=== PATIENT | male | born 1930 | race Caucasian/White ===

== ENCOUNTER 2016-09-19 22:49 | Emergency (ER) | payer MEDICARE, BC ==
[2016-09-20 00:21] LABS: Calcium 9.3 mg/dL (8.6-10.3); EGFR African American 71.6 (>60); EGFR Non-African American 55.7 (>60)
[2016-09-20 00:28] LABS: Hematocrit 42 % (42-52); Hemoglobin 13.9 g/dl (14.0-18.0); Mean Corpuscular HGB Conc 33 g/dl (31-36); Mean Corpuscular Hemoglobin 28 pg (27-31); Mean Corpuscular Volume 85 fL (80-94); Mean Platelet Volume 9 um3 (7.4-10.4); Red Blood Count 4.95 10^6/ul (4.0-5.4); Red Cell Distribution Width 15 % (10.5-15); White Blood Count 9.5 10^3/ul (3.5-10.8)
--- NOTE | 2016-09-20 00:57 | ED ---
Meredith Staley Michael, scribed for Manny Wehat MD on 09/19/16 at 2326 . Influenza-Like Illness - HPI Summary HPI Summary: 86 y/o comes to the ED presenting with influenza-like symptoms for one day. The pt's was beside and states that the fever's highest temperature was 102.5, and currently at the ED, the pt's temperature is 99.8. 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 He also c/o chills, BAIRD, weakness, and myalgia. The pt denies n/v/d. He recently visited Urgent Care on September 02 and was dx with bronchitis. He was prescribed Doxycycline for 10 days. He is currently taking Augmentin. - History of Current Complaint Chief Complaint: EDFluSymptoms Time Seen by Provider: 09/19/16 23:20 Hx Obtained From: Patient, Family/Reel Worker, Medical Records Onset/Duration: Sudden Onset, Lasting Days, Still Present Severity: Moderate Associated Signs & Symptoms: Fever - chills and weakness, T Max - 102.5, Myalgia , Headache - Allergy/Home Medications Allergies/Adverse Reactions: Allergies Allergy/AdvReac Type Severity Reaction Status Date / Time Ciprofloxacin [From Cipro] Allergy Rash Verified 09/19/16 22:59 PMH/Surg Hx/FS Hx/Imm Hx Cardiovascular History: Reports: Hx Hypertension Musculoskeletal History: Reports: Hx Arthritis, Other Musculoskeletal History - arthritis Sensory History: Reports: Hx Contacts or Glasses, Hx Hearing Aid Opthamlomology History: Reports: Hx Contacts or Glasses - Cancer History Cancer Type, Location and Year: prostate cancer - Surgical History Surgery Procedure, Year, and Place: prostate surgery, bilateral knees Hx Anesthesia Reactions: No Infectious Disease History: No Infectious Disease History: Denies: Traveled Outside the [place] in Last 30 Days - Family History Known Family History: Negative: Blood Disorder - Social History Occupation: Retired Lives: With Family Alcohol Use: Rare Substance Use Type: Reports: None Type: Cigarettes Review of Systems Positive: Fever, Chills Negative: Vomiting, Diarrhea, Nausea Positive: Myalgia Positive: Headache, Weakness All Other Systems Reviewed And Are Negative: Yes Physical Exam Triage Information Reviewed: Yes Vital Signs On Initial Exam: Initial Vitals Temp Pulse Resp BP Pulse Ox 99.8 F 128 20 116/66 94 09/19/16 22:55 09/19/16 22:55 09/19/16 22:55 09/19/16 22:55 09/19/16 22:55 Vital Signs Reviewed: Yes Appearance: Positive: Well-Appearing, No Pain Distress Skin: Positive: Warm Head/Face: Positive: Normal Head/Face Inspection Eyes: Positive: ANNA ENT: Positive: Pharynx normal Neck: Positive: Supple, Nontender Respiratory/Lung Sounds: Positive: Clear to Auscultation, Breath Sounds Present Cardiovascular: Positive: RRR Abdomen Description: Positive: Nontender, Soft Bowel Sounds: Positive: Present Musculoskeletal: Positive: Strength/ROM Intact Neurological: Positive: Sensory/Motor Intact, Alert, Oriented to Person Place, Time Psychiatric: Positive: Affect/Mood Appropriate Diagnostics - Vital Signs Vital Signs Temp Pulse Resp BP Pulse Ox 09/19/16 22:55 99.8 F 128 20 116/66 94 - Laboratory Lab Results: Lab Results 09/19/16 09/19/16 09/19/16 Range/Units 23:10 23:43 23:43 WBC 9.5 (3.5-10.8) 10^3/ul RBC 4.95 (4.0-5.4) 10^6/ul Hgb 13.9 L (14.0-18.0) g/dl Hct 42 (42-52) % MCV 85 (80-94) fL MCH 28 (27-31) pg MCHC 33 (31-36) g/dl RDW 15 (10.5-15) % Plt Count 221 (150-450) 10^3/ul MPV 9 (7.4-10.4) um3 Neut % (Auto) 77.8 (38-83) % Lymph % (Auto) 10.7 L (25-47) % Dodge % (Auto) 10.5 H (1-9) % Eos % (Auto) 0.6 (0-6) % Baso % (Auto) 0.4 (0-2) % Absolute Neuts (auto) 7.4 (1.5-7.7) 10^3/ul Absolute Lymphs (auto) 1.0 (1.0-4.8) 10^3/ul Absolute Monos (auto) 1.0 H (0-0.8) 10^3/ul Absolute Eos (auto) 0.1 (0-0.6) 10^3/ul Absolute Basos (auto) 0 (0-0.2) 10^3/ul Absolute Nucleated RBC 0 10^3/ul Nucleated RBC % 0 Sodium 130 L (133-145) mmol/L Potassium 4.0 (3.5-5.0) mmol/L Chloride 98 L (101-111) mmol/L Carbon Dioxide 24 (22-32) mmol/L Anion Gap 8 (2-11) mmol/L BUN 27 H (6-24) mg/dL Creatinine 1.23 H (0.67-1.17) mg/dL Est GFR ( Amer) 71.6 (>60) Est GFR (Non-Af Amer) 55.7 (>60) BUN/Creatinine Ratio 22.0 H (8-20) Glucose 123 H (70-100) mg/dL Calcium 9.3 (8.6-10.3) mg/dL Influenza A (Rapid) Positive H (Negative) Influenza B (Rapid) Negative (Negative) Result Diagrams: 09/19/16 23:43 09/19/16 23:43 Lab Statement: Any lab studies that have been ordered have been reviewed, and results considered in the medical decision making process. - Radiology CXR Xray Interpretation: No Acute Changes Radiology Interpretation Completed By: ED Physician - EKG EK EKG Rhythm: Sinus Tachycardia - 110 bpm Ectopy: PVCs Re-Evaluation - Re-Evaluation First Eval Change: Improved - results d/w pt Flu Symptom Course/Dx - Diagnoses Provider Diagnoses: Influenza Discharge - Discharge Plan Condition: Stable Disposition: HOME Patient Education Materials: Influenza (ED) Referrals: Hernán Harrell MD [Primary Care Provider] - Additional Instructions: You should follow up with Dr. Harrell within the next 2-4 days. The documentation as recorded by the Meredith templeton Michael accurately reflects the service I personally performed and the decisions made by me, Manny Wheat MD.
[2016-09-20 01:17] VITALS: BP 131/79
--- NOTE | 2016-09-20 07:45 | RAD ---
INDICATION: Fever. COMPARISON: Comparison is made with a prior chest x-ray study from June 26, 2016. TECHNIQUE: Dual-energy PA and lateral views of the chest were obtained. FINDINGS: The heart is within normal limits in size. Mediastinal and hilar contours appear within normal limits. The lungs are hyperinflated and clear. There has been interval resolution of the previously noted right upper lobe infiltrate. No pleural effusion is seen. IMPRESSION: NO EVIDENCE FOR ACTIVE CARDIOPULMONARY DISEASE.
== END 2016-09-20 01:17 | disposition home or self-care (01) ==
LOC: ED 22:49
DX: R50.9 Fever, unspecified (principal); R53.1 Weakness; R51 Headache; M79.1 Myalgia
CPT/HCPCS: 36415; 71020; 80048; 85025; 87502; 93005; 99283

== ENCOUNTER 2019-04-06 14:11 | Emergency (ER) | payer MEDICARE, BC ==
--- NOTE | 2019-04-06 17:00 | ED ---
Abdominal Pain/Male - HPI Summary HPI Summary: This patient is a 88 year old M presenting to [facility] accompanied by his with a chief complaint of constant ABD pain since earlier today. Pt states he went to bed and woke up in the morning to pee when he felt a burning sensation in the lower ABD. This lasted for 15 minutes and the pain radiated to the rest of his ABD and flank areas. The patient rates the pain 8/10 in severity. Symptoms aggravated by nothing. Symptoms alleviated by nothing. Patient denies any fever, chills, erythema of eyes, sore throat, CP, SOB, cough, N/V, dysuria, hematuria, myalgia, edema, rash, diaphoresis, or dizziness. Pt has an irregular heartbeat and had a cholecystectomy done. - History of Current Complaint Chief Complaint: EDAbdPain Stated Complaint: POSS APPENDICITIS PER Time Seen by Provider: 04/06/19 16:54 Hx Obtained From: Patient, Family/Switchboard Installer - Onset/Duration: Sudden Onset, Lasting Hours - since this morning, Still Present Severity Initially: Moderate Severity Currently: Moderate Pain Intensity: 8 Pain Scale Used: 0-10 Numeric Radiates: Yes Radiates to: Flank Aggravating Factor(s): Nothing Alleviating Factor(s): Nothing Associated Signs And Symptoms: Positive: Other - positive - ABD pain. negative - any chills, erythema of eyes, sore throat, SOB, dysuria, hematuria, myalgia, edema, rash, or dizziness.. Negative: Diaphoresis, Fever, Cough, Chest Pain, Nausea, Vomiting - Allergies/Home Medications Allergies/Adverse Reactions: Allergies Allergy/AdvReac Type Severity Reaction Status Date / Time ciprofloxacin Allergy Rash Verified 04/08/19 09:35 Home Medications: Home Medications Hydrochlorothiazide TAB* [Hydrodiuril TAB*] 12.5 mg PO QAM 04/06/19 [History Confirmed 04/06/19] Mometasone NASAL (NF) [Nasonex (NF)] 2 spray BOTH NARES QAM 04/06/19 [History Confirmed 04/06/19] Omeprazole CAP (NF) [Prilosec CAP* 20 MG] 20 mg PO QAM 04/06/19 [History Confirmed 04/06/19] Quinapril HCl 40 mg PO QAM 04/06/19 [History Confirmed 04/06/19] PMH/Surg Hx/FS Hx/Imm Hx Previously Healthy: No Cardiovascular History: Reports: Hx Hypertension, Other Cardiovascular Problems/ Disorders - ARRYTHYMIA Musculoskeletal History: Reports: Hx Arthritis, Other Musculoskeletal History - arthritis Sensory History: Reports: Hx Contacts or Glasses, Hx Hearing Aid Opthamlomology History: Reports: Hx Contacts or Glasses - Cancer History Cancer Type, Location and Year: prostate cancer - Surgical History Surgical History: Yes Surgery Procedure, Year, and Place: prostate surgery, bilateral knees Hx Anesthesia Reactions: No - Immunization History Date of Tetanus Vaccine: unk Date of Influenza Vaccine: unk Infectious Disease History: No Infectious Disease History: Denies: Traveled Outside the [place] in Last 30 Days - Family History Known Family History: Negative: Blood Disorder - Social History Alcohol Use: Rare Substance Use Type: Reports: None Hx Tobacco Use: Yes Smoking Status (MU): Never Smoked Tobacco Type: Cigarettes Review of Systems Negative: Fever, Chills, Skin Diaphoresis Negative: Erythema Negative: Sore Throat Negative: Chest Pain Negative: Shortness Of Breath, Cough Positive: Abdominal Pain. Negative: Vomiting, Nausea Negative: dysuria, hematuria Negative: Myalgia, Edema Negative: Rash Neurological: Other - negative - dizziness All Other Systems Reviewed And Are Negative: Yes Physical Exam - Summary Physical Exam Summary: Constitutional: Well-developed, Well-nourished, Alert. (-) Distressed Skin: Warm, Dry HENT: Normocephalic; Atraumatic Eyes: Conjunctiva normal Neck: Musculoskeletal ROM normal neck. (-) JVD, (-) Stridor, (-) Tracheal deviation Cardio: Rhythm regular, rate normal, Heart sounds normal; Intact distal pulses; The pedal pulses are 2+ and symmetric. Radial pulses are 2+ and symmetric. (-) Murmur Pulmonary/Chest wall: Effort normal. (-) Respiratory distress, (-) Wheezes, (-) Rales Abd: Soft, RLQ tenderness with guarding, (-) Distension, (-) Rebound Musculoskeletal: (-) Edema Lymph: (-) Cervical adenopathy Neuro: Alert, Oriented x3 Psych: Mood and affect Normal Triage Information Reviewed: Yes Vital Signs On Initial Exam: Initial Vitals Temp Pulse Resp BP Pulse Ox 98.6 F 84 18 127/79 97 04/06/19 14:19 04/06/19 14:19 04/06/19 14:19 04/06/19 14:19 04/06/19 14:19 Vital Signs Reviewed: Yes Procedures - Sedation Patient Received Moderate/Deep Sedation with Procedure: No Diagnostics - Vital Signs Vital Signs Temp Pulse Resp BP Pulse Ox 04/06/19 14:19 98.6 F 84 18 127/79 97 - Laboratory Result Diagrams: 04/06/19 16:52 04/06/19 16:52 Lab Statement: Any lab studies that have been ordered have been reviewed, and results considered in the medical decision making process. Abdominal Pain Male Course/Dx - Course Course Of Treatment: This patient is a 88 year old M presenting to [facility] accompanied by his with a chief complaint of constant ABD pain since earlier today. Pt states he went to bed and woke up in the morning to pee when he felt a burning sensation in the lower ABD. This lasted for 15 minutes and the pain radiated to the rest of his ABD and flank areas. The patient rates the pain 8/10 in severity. Symptoms aggravated by nothing. Symptoms alleviated by nothing. Patient denies any fever, chills, erythema of eyes, sore throat, CP, SOB, cough, N/V, dysuria, hematuria, myalgia, edema, rash, diaphoresis, or dizziness. Pt has an irregular heartbeat and had a cholecystectomy done. Physical exam shows RLQ tenderness with guarding. Lab results show WBC 14.7, absolute neuts 12.0, BUN 32, creatinine 1.98, glucose 118, CRP 23.55, lipase 10 , urine ketones trace A. During ED course, pt was given Mefoxin, morphine, fluids, and Zofran. Pt will be signed out from Dr. Sandra to Dr. Cole at [address] read. - Diagnoses Provider Diagnoses: Right kidney stone Discharge ED - Sign-Out/Discharge Documenting (check all that apply): Sign-Out Patient Signing out patient TO: Toni Cole - Discharge Plan Condition: Stable Disposition: HOME Prescriptions: Acetaminophen with Codeine [Acetaminophen-Cod #3 Tablet] 1 each PO Q8HR PRN #20 tablet MDD 3 tablets PRN Reason: pain severe Patient Education Materials: Kidney Stones (ED) Referrals: Hernán Harrell MD [Primary Care Provider] - Brian Brumfield MD [Medical Doctor] - Additional Instructions: Please follow up with your primary care provider as well as Dr. Brumfield within the next 1-3 days. Come back to the emergency department with any new or worsening symptoms, including fever, chills, vomiting, or worsening pain. - Billing Disposition and Condition Condition: STABLE Disposition: Home - Attestation Statements Document Initiated by Clive: Yes Documenting Scribe: Antwan Bradford Provider For Whom Scribe is Documenting (Include Credential): Dr. Zeferino Sandra MD Scribe Attestation: Antwan Staley scribed for Dr. Zeferino Sandra MD on 04/14/19 at 2237. Scribe Documentation Reviewed: Yes Provider Attestation: The documentation as recorded by the Antwan templeton accurately reflects the service I personally performed and the decisions made by me, Dr. Zeferino Sandra MD Status of Scribe Document: Viewed
[2019-04-06 17:02] LABS: ABS Basophils 0.1 10^3/ul (0-0.2); ABS Lymphocytes 1.9 10^3/ul (1.0-4.8); ABS Monocytes 0.7 10^3/ul (0-0.8); Eosinophil % 0.1 %; Hematocrit 45 % (42-52); Hemoglobin 15.1 g/dL (14.0-18.0); Lymphocyte % 12.9 %; Mean Corpuscular HGB Conc 33 g/dL (31-36); Mean Corpuscular Hemoglobin 29 pg (27-31); Mean Corpuscular Volume 88 fL (80-94); Mean Platelet Volume 8.6 fL (7.4-10.4); Nucleated Red Blood Cells % 0.1; Platelet Count 253 10^3/uL (150-450); Red Blood Count 5.12 10^6 /uL (4.18-5.48); Red Cell Distribution Width 15 % (10-15); White Blood Count 14.7 10^3/uL (3.5-10.8)
[2019-04-06] MEDS ORDERED: Morphine 4 MG/ML VIAL (1 ml) 4 MG/ML VIAL IV ONE (17:13)
[2019-04-06] MEDS ORDERED: Ondansetron INJ* 2 MG/ML VIAL IV ONE (17:13)
[2019-04-06] MEDS ORDERED: NS 0.9% 1000 ML** 1,000 ML IV ONE (17:14)
[2019-04-06 17:25] LABS: Albumin 4.3 g/dL (3.2-5.2); Albumin/Globulin Ratio 1.7 (1-3); BUN/Creatinine Ratio 16.2 (8-20); C Reactive Protein 23.55 mg/L (<8.01); Calcium 9.6 mg/dL (8.6-10.3); EGFR African American 38.7 (>60); Globulin 2.6 g/dL (2-4); Potassium 4.4 mmol/L (3.5-5.0); Total Protein 6.9 g/dL (6.4-8.9)
[2019-04-06] MEDS ORDERED: ceFOXitin 2 GM IVPREMIX* 2 GM/50 ML BAG IVPB ONE (17:25)
[2019-04-06] MEDS ORDERED: Iodixanol* (CONTRAST) 320 MG/ML 100 ML SDV IV ONE (18:43)
[2019-04-06 18:51] LABS: Urine Appearance Clear; Urine Bilirubin Negative (Negative); Urine Blood Negative (Negative); Urine Color Yellow; Urine Glucose Negative (Negative); Urine Ketones Trace (Negative); Urine Nitrite Negative (Negative); Urine Protein Negative (Negative); Urine Specific Gravity 1.018 (1.010-1.030); Urine Urobilinogen Negative (Negative)
--- NOTE | 2019-04-06 19:31 | ED ---
Progress - Progress Note Progress Note: Pt is a signout from Dr. Sandra at 1900 on 04/06/[address] a/p results. - Results/Orders Results/Orders: CT a/p shows: Distal right ureteral stone with dilatation of the ureter and renal pelvis and perinephric fat stranding. ED physician has reviewed this report. Course/Dx - Course Course Of Treatment: Patient is here with abdominal and flank pain. Patient signed out from Dr. Sandra to myself. Patient's CT scan showed a kidney stone at the distal ureter right at the bladder lip. Patient has no symptoms consistent with an infected stone as he has no fever, vomiting, flank pain. Patient started on Flomax and discharged with pain control. Patient was given urology follow-up - Diagnoses Provider Diagnoses: Right kidney stone Discharge ED - Sign-Out/Discharge Documenting (check all that apply): Patient Departure, Receiving Sign-Out Receiving patient FROM: Zeferino Sandra - Discharge Plan Condition: Stable Disposition: HOME Prescriptions: Acetaminophen with Codeine [Acetaminophen-Cod #3 Tablet] 1 each PO Q8HR PRN #20 tablet MDD 3 tablets PRN Reason: pain severe Tamsulosin CAP* [Flomax CAP*] 0.4 mg PO DAILY 30 Days #30 cap Patient Education Materials: Kidney Stones (ED) Referrals: Hernán Harrell MD [Primary Care Provider] - Brian Brumfield MD [Medical Doctor] - Additional Instructions: Please follow up with your primary care provider as well as Dr. Brumfield within the next 1-3 days. Come back to the emergency department with any new or worsening symptoms, including fever, chills, vomiting, or worsening pain. - Billing Disposition and Condition Condition: STABLE Disposition: Home - Attestation Statements Document Initiated by Scribe: Yes Documenting Scribe: Sirisha Moran Provider For Whom Clive is Documenting (Include Credential): Toni Cole MD. Scribe Attestation: Sirisha Staley scribed for Toni Cole MD. on 04/07/19 at 0338. Scribe Documentation Reviewed: Yes Provider Attestation: The documentation as recorded by the Sirisha templeton accurately reflects the service I personally performed and the decisions made by Toni ayoub MD. Status of Scribe Document: Viewed Procedures - Sedation Patient Received Moderate/Deep Sedation with Procedure: No
[2019-04-06] MEDS ORDERED: HYDROcodone/ACETAMIN 5-325 MG* 1 TAB PO ONE (21:16)
[2019-04-06 21:43] VITALS: BP 124/81
== END 2019-04-06 21:42 | disposition home or self-care (01) ==
LOC: ED 14:11
DX: N20.0 Calculus of kidney (principal); I10 Essential (primary) hypertension; Z85.46 Personal history of malignant neoplasm of prostate; Z79.899 Other long term (current) drug therapy; Z88.1 Allergy status to other antibiotic agents
CPT/HCPCS: 36415; 74177; 80053; 81003; 83605; 83690; 85025; 86140; 96361; 96365; 96375; 99283; J0694; J2270; J2405; Q9967

== ENCOUNTER 2019-04-08 09:09 | Day surgery (SDC) | payer MEDICARE, BC ==
--- NOTE | 2019-04-07 19:24 | HP ---
CC: Dr. Harrell * ADMITTING HISTORY AND PHYSICAL: DATE OF ADMISSION: 04/08/19 ADMITTING DIAGNOSIS: 1. Right hydronephrosis. 2. Obstructing calculus, right distal ureter. PLANNED PROCEDURE: Right ureteroscopy, possible laser and stent insertion. HISTORY OF PRESENT ILLNESS: Jessica Weston is an 88-year-old gentleman who has had right flank and right lower quadrant pain for the last several days associated with nausea and anorexia. He underwent evaluation by Dr. Harrell and a subsequent CT scan, which revealed right hydronephrosis secondary to a calculus in the right distal ureter. He continues to have episodic pain and was seen in my office where an ultrasound revealed persistent right hydronephrosis secondary to a 6-mm calculus in the right distal ureter with moderate surrounding edema and significantly reduced right ureteral jet. In addition, there was evidence of perinephric extravasation. PAST MEDICAL HISTORY: Significant for: 1. Hypertension. 2. Prostate cancer, diagnosed in 1993, treated with cryotherapy. 3. History of arrhythmia (PVC, had a cardiac workup, which was essentially negative). PAST SURGICAL HISTORY: Significant for: 1. Cryotherapy for prostate cancer. 2. Bilateral total knee replacement. 3. Cholecystectomy. MEDICATIONS ON ADMISSION: 1. Hydrochlorothiazide 12.5 mg daily. 2. Nasonex 50 mcg 2 sprays in each nostril daily. 3. Quinapril 40 mg daily. 4. Omeprazole 20 mg daily. ALLERGIES: CIPRO (rash). FAMILY HISTORY: His daughter has had kidney stones. SOCIAL HISTORY: He is a former smoker who quit 35 years ago and has a 30-pack- year smoking history prior to that. REVIEW OF SYSTEMS: He denies any chest pain or shortness of breath. There is no history of diabetes mellitus or any other major systemic illness. PHYSICAL EXAMINATION GENERAL: Reveals a pleasant elderly gentleman. VITAL SIGNS: Blood pressure is 94/62, pulse 95 per minute and regular, temperature 98.4, oxygen saturation 96% on room air. LUNGS: Clear bilaterally. CARDIOVASCULAR: Regular rate and rhythm. S1, S2. ABDOMEN: Soft with right flank and right lower quadrant tenderness. IMPRESSION: An 88-year-old gentleman with an obstructing calculus in the right distal ureter. PLAN/RECOMMENDATIONS: Planned procedure is right ureteroscopy, possible laser and stent insertion. [id number]/[facility] #: [id number] MTDD
[~2019-04-08 09:09] MED LIST: Buffered Lidocaine 1% SYRIN* 1 ML/SYRINGE INTRADERM ONE; Dexamethasone IV* 4 MG/ML 1 ML (4 MG) IV SLOW PU ONE; Lactated Ringers 1000 ML Bag* 1,000 ML IV SCH
[2019-04-08] MEDS ORDERED: cefTRIAXone(*) 2 GM ADDV.VIAL IVPB ONE (09:31)
[2019-04-08] MEDS ORDERED: Dexamethasone IV* 4 MG/ML 1 ML (4 MG) ONE (09:31)
[2019-04-08] MEDS ORDERED: Iohexol 180 (CONTRAST) 10 ML SDV IV ONE (10:32)
[2019-04-08] MEDS ORDERED: fentaNYL* 50 MCG/ML 2 ML VIAL (100 MCG VIAL) ONE (10:46)
[2019-04-08] MEDS ORDERED: Midazolam* 1 MG/ML 5 ML VIAL (5 MG) ONE (10:46)
[2019-04-08] MEDS ORDERED: fentaNYL* 50 MCG/ML 2 ML VIAL (100 MCG VIAL) IV PRN (10:47)
[2019-04-08] MEDS ORDERED: Naloxone* 0.4 MG/ML 1 ML VIAL IV PRN (10:47)
[2019-04-08] MEDS ORDERED: oxyCODONE/Acetamin 5/325 MG* TAB PO PRN (10:47)
[2019-04-08] MEDS ORDERED: HYDROcodone/ACETAMIN 5-325 MG* 1 TAB PO PRN (10:47)
[2019-04-08] MEDS ORDERED: DiMENhydriNATE IV* 50 MG/ML VIAL IV PUSH PRN (10:47)
[2019-04-08] MEDS ORDERED: Acetaminophen TAB* 325 MG PO PRN (10:47)
[2019-04-08 13:07] VITALS: BP 158/80
--- NOTE | 2019-04-08 22:21 | OP ---
CC: Dr. Harrell * DATE OF OPERATION: 04/08/19 - [facility] DATE OF : 28 SURGEON: Brian Brumfield MD ANESTHESIOLOGIST: Dr. Stroud. ANESTHESIA: Spinal. PRE-OP DIAGNOSES: 1. Right hydronephrosis. 2. Calculus, right ureter. POST-OP DIAGNOSES: 1. Right hydronephrosis. 2. Calculus, right ureter. OPERATIVE PROCEDURE: Cystoscopy, right retrograde pyelogram, right ureteroscopy , laser lithotripsy of calculus right ureter and removal of calculus fragments and right stent insertion. COMPLICATIONS: None. STENT USED: 6-Angolan stent, right ureter. OPERATIVE FINDINGS: Approximately 5- to 6-mm calculus impacted at right ureterovesical junction with surrounding edema and inflammation and right hydronephrosis. POSTOPERATIVE CONDITION: Stable. INDICATIONS: Jessica Weston is an 88-year-old gentleman who has had flank pain secondary to an obstructing calculus in the right distal ureter. DESCRIPTION OF PROCEDURE: After induction of spinal anesthesia, the patient was placed in dorsal lithotomy position. Sequential compression devices were in place and functioning. Initial cystoscopy revealed a normal-appearing urethra and a mildly enlarged prostate. The bladder was examined. The tip of the calculus could be seen at the level of the right ureterovesical junction with surrounding edema and inflammation. A guidewire was introduced adjacent to the calculus. Retrograde pyelogram revealed right hydronephrosis with tortuosity of the proximal right ureter. This was straightened out over a hydrophilic glidewire. A 6-Angolan semi-rigid ureteroscope was introduced and advanced under direct vision. The calculus was fragmented using a 550 micron Holmium laser fiber and the two fragments were removed. A 6-Angolan stent was introduced and positioned under fluoroscopy with good proximal and distal positioning obtained. The bladder was emptied. The patient tolerated the procedure satisfactorily and was transferred back to the recovery area in stable condition. [id number]/[facility] #: [id number] G[facility] HEALTHJayda
== END 2019-04-08 13:54 | disposition home or self-care (01) ==
LOC: OR 09:09
PROVIDERS: ATTEND Urology
DX: N13.2 Hydronephrosis with renal and ureteral calculous obstruction (principal); I10 Essential (primary) hypertension; Z85.46 Personal history of malignant neoplasm of prostate; I49.3 Ventricular premature depolarization
CPT/HCPCS: 74420; 82365; 88300; C1876; J0696; J1100; J2250; J3010

== ENCOUNTER 2019-04-17 08:18 | Observation (INO) | payer MEDICARE, BC ==
[2019-04-17] MEDS ORDERED: NS 0.9% 1000 ML** 1,000 ML IV.FLUID IV ONE (08:31)
[2019-04-17] MEDS ORDERED: cefTRIAXone(*) 1 GM in NS 0.9% 50 ML* 50 ML IVPB ONE (08:31)
--- NOTE | 2019-04-17 08:35 | ED ---
Altered Mental Status - HPI Summary HPI Summary: 88 year old male presents to the ED by EMS with fever and altered mental status , starting yesterday but worse since early this morning. Patient is confused and disoriented. He reports no pain. Per , the patient has a fever. Patient is not normally confused. Per , he had a kidney stone removed last week, as well as a stent removal yesterday. He is not on any chronic medications. - History Of Current Complaint Chief Complaint: EDFever Stated Complaint: GENERAL ILLNESS PER EMS Time Seen by Provider: 04/17/19 08:20 Hx Obtained From: Family/Robotics Technologist Hx From Patient Unobtainable Due To: Altered Mental Status Onset/Duration: Still Present Timing: Constant, Lasting Hours Severity Initially: Moderate Severity Currently: Moderate Character: Confusion Alleviating Factor(s): Nothing Associated Signs And Symptoms: Positive: Fever - Allergies/Home Medications Allergies/Adverse Reactions: Allergies Allergy/AdvReac Type Severity Reaction Status Date / Time ciprofloxacin Allergy Rash Verified 04/08/19 09:35 Home Medications: Home Medications Ibuprofen TAB* [Motrin TAB* 400 MG] 400 mg PO Q6H PRN 04/17/19 [History Confirmed 04/17/19] PMH/Surg Hx/FS Hx/Imm Hx Endocrine/Hematology History: Denies: Hx Bone Marrow Disease, Hx Sickle Cell Disease, Hx Anemia Cardiovascular History: Reports: Hx Hypertension - [place] QUINAPRIL, Other Cardiovascular Problems/Disorders - ARRYTHYMIA "HAS AN EXTRA BEAT" NO MEDS Denies: Hx Angina, Hx Cardiomegaly, Hx Congestive Heart Failure, Hx Coronary Artery Disease, Hx Pacemaker/ICD, Hx Peripheral Vascular Disease, Hx Rheumatic Fever, Hx Valvular Heart Disease Respiratory History: Denies: Hx Pulmonary Edema, Hx Pulmonary Embolism, Other Respiratory Problems /Disorders GI History: Reports: Hx Gastroesophageal Reflux Disease - [place] OMEPRAZOLE Denies: Other GI Disorders History: Reports: Hx Kidney Stones - RIGHT SIDE-CURRENT Denies: Hx Kidney Infection, Other Problems/Disorders Musculoskeletal History: Reports: Hx Arthritis - "GENERALIZED" Denies: Other Musculoskeletal History Sensory History: Reports: Hx Cataracts - NO SURGERY TO CORRECT, Hx Contacts or Glasses - GLASSES, Hx Hearing Aid - DOES NOT WEAR THEM-ABLE TO HEAR OK WITHOUT Denies: Hx Glaucoma Opthamlomology History: Reports: Hx Cataracts - NO SURGERY TO CORRECT, Hx Contacts or Glasses - GLASSES Denies: Hx Glaucoma Neurological History: Denies: Other Neuro Impairments/Disorders - Cancer History Cancer Type, Location and Year: prostate cancer Hx Chemotherapy: No - Surgical History Surgery Procedure, Year, and Place: prostate surgery, [facility]. KNEE REPLACEMENTS, [place] Hx Anesthesia Reactions: No - Immunization History Date of Tetanus Vaccine: unk Date of Influenza Vaccine: unk Infectious Disease History: No Infectious Disease History: Denies: Traveled Outside the [place] in Last 30 Days - Family History Known Family History: Negative: Blood Disorder - Social History Alcohol Use: Rare Substance Use Type: Reports: None Hx Tobacco Use: Yes Smoking Status (MU): Former Smoker Type: Cigarettes Amount Used/How Often: 1/2 PPD X 5 YRS- Review of Systems Positive: Fever Positive: Other - confused All Other Systems Reviewed And Are Negative: Yes Physical Exam - Summary Physical Exam Summary: VITAL SIGNS: Reviewed. GENERAL: Patient is a well-developed and nourished elderly male who is lying comfortable in the stretcher. Patient is not in any acute respiratory distress. HEAD AND FACE: No signs of trauma. No ecchymosis, hematomas or skull depressions. No sinus tenderness. EYES: PERRLA, EOMI x 2, No injected conjunctiva, no nystagmus. EARS: Hearing grossly intact. Ear canals and tympanic membranes are within normal limits. MOUTH: Oropharynx within normal limits. NECK: Supple, trachea is midline, no adenopathy, no JVD, no carotid bruit, no c- spine tenderness, neck with full ROM. CHEST: Symmetric, no tenderness at palpation. LUNGS: Clear to auscultation bilaterally. No wheezing or crackles. CVS: Regular rate and rhythm, S1 and S2 present, no murmurs or gallops appreciated. ABDOMEN: Soft, non-tender. No signs of distention. No rebound, no guarding, and no masses palpated. Bowel sounds are normal. EXTREMITIES: FROM in all major joints, no edema, no cyanosis or clubbing. NEURO: Alert. Not oriented. No acute neurological deficits. Speech is normal and follows commands. SKIN: Dry and warm. Triage Information Reviewed: Yes Vital Signs On Initial Exam: Initial Vitals Temp Pulse Resp BP Pulse Ox 101.5 F 106 18 112/60 92 04/17/19 08:19 04/17/19 08:19 10/18/19 08:19 04/17/19 08:19 04/17/19 08:19 Vital Signs Reviewed: Yes - Cr Coma Scale Best Eye Response: 4 - Spontaneous Best Motor Response: 6 - Obeys Commands Best Verbal Response: 5 - Oriented Coma Scale Total: 15 Procedures - Sedation Patient Received Moderate/Deep Sedation with Procedure: No Diagnostics - Vital Signs Vital Signs Temp Pulse Resp BP Pulse Ox 04/17/19 08:19 101.5 F 106 18 112/60 92 - Laboratory Result Diagrams: 04/17/19 09:05 04/17/19 09:05 Lab Statement: Any lab studies that have been ordered have been reviewed, and results considered in the medical decision making process. - Radiology CXR Radiology Interpretation Completed By: Radiologist Summary of Radiographic Findings: NO ACUTE CARDIOPULMONARY PROCESS BY RADIOGRAPH. An ED physician has reviewed this report. - CT Brain CT CT Interpretation Completed By: Radiologist Summary of CT Findings: Brain CT shows the following impressions: 1. No acute intracranial abnormality by CT. 2. 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 3. Mild chronic small vessel ischemic disease is likely. An ED physician has reviewed this report. - EKG 904 Cardiac Rate: Tachycardia - 105 bpm EKG Rhythm: Sinus Tachycardia EKG Comparison: No Significant Change Summary of EKG Findings: EKG at 904 shows sinus tachycardia at [address] elevations. Similar to EKG on 09/19/16. An ED physician has reviewed and interpreted this report. Altered Mental Statu Course/Dx - Course Assessment/Plan: PATIENT IS AN 88-YEAR-OLD MALE WHO PRESENTS TO THE EMERGENCY DEPARTMENT VIA AMBULANCE WITH A CHIEF COMPLAINT OF FEVER AND ALTERED MENTAL STATUS. Initially the patient was positive for sepsis alert. We obtained an IV access, the patient was placed in a front desk monitor, IV assesses were obtained and we started IV fluids 30 ccs per KG. Since the patient had a urological manipulation the patient was given Rocephin. Blood test results shows without any significant abnormality except for WBCs of 11.8, with a left shift. Sodium 134, chloride 99, creatinine 1.33, glucose 114, -1.7, troponin 0.04, CRP of 44.4, EMP of 414. Urinalysis is negative for UTI. Head CT impression: No acute intracranial abnormality. Chest x-ray impression: No acute pathology. In the ED course the patient also was given Tylenol for the fever. I discussed my physical exam with Dr. Brumfield who came and assessed the patient. He recommends admission and he will continue to consult for this patient. I discussed my physical exam and findings with Dr. Kim who accepted the patient for admission. - Diagnoses Provider Diagnoses: Sepsis, Fever - Provider Notifications Discussed Care Of Patient With: Lupe Kim - Hospitalist Time Discussed With Above Provider: 10:03 Instructed by Provider To: Admit As Inpatient - I spoke to Dr. Kim at 1003, who accepted this patient for admission. Admit/Transition Orders Completed By ED Provider: Yes Discharge ED - Sign-Out/Discharge Documenting (check all that apply): Patient Departure - admit - Discharge Plan Condition: Stable Disposition: ADMITTED TO [facility] Referrals: Hernán Harrell MD [Primary Care Provider] - - Attestation Statements Document Initiated by Scribe: Yes Documenting Scribe: Caleb Lopez Provider For Whom Scribe is Documenting (Include Credential): Dr. Jose Alejandro Alberts MD. Scribe Attestation: ICaleb, scribed for Dr. Jose Alejandro Alberts MD. on 04/17/19 at 1333. Status of Scribe Document: Ready
[2019-04-17 09:22] LABS: Hematocrit 42 % (42-52); Hemoglobin 13.5 g/dL (14.0-18.0); Mean Corpuscular HGB Conc 32 g/dL (31-36); Mean Corpuscular Hemoglobin 28 pg (27-31); Mean Corpuscular Volume 87 fL (80-94); Mean Platelet Volume 7.9 fL (7.4-10.4); Platelet Count 226 10^3/uL (150-450); Red Blood Count 4.76 10^6 /uL (4.18-5.48); Red Cell Distribution Width 15 % (10-15); White Blood Count 11.8 10^3/uL (3.5-10.8)
[2019-04-17 09:41] LABS: Urine Appearance Clear; Urine Bacteria Absent (Absent); Urine Bilirubin Negative (Negative); Urine Blood 2+ (Negative); Urine Color Yellow; Urine Glucose Negative (Negative); Urine Ketones Negative (Negative); Urine Nitrite Negative (Negative); Urine Protein Negative (Negative); Urine Red Blood Cell 2+(6-10/hpf) (Absent); Urine Specific Gravity 1.019 (1.010-1.030); Urine Urobilinogen Negative (Negative); Urine White Blood Cell Trace(0-5/hpf) (Absent)
[2019-04-17 09:41] LABS: ALT 16 U/L (7-52); AST 19 U/L (13-39); Albumin 3.7 g/dL (3.2-5.2); Albumin/Globulin Ratio 1.5 (1-3); Alkaline Phosphatase 49 U/L (34-104); Anion Gap 7 mmol/L (2-11); Blood Urea Nitrogen 20 mg/dL (6-24); C Reactive Protein 44.46 mg/L (<8.01); CO2 Carbon Dioxide 28 mmol/L (22-32); Calcium 8.8 mg/dL (8.6-10.3); Chloride 99 mmol/L (101-111); Creatine Kinase 65 U/L (10-223); EGFR African American 61.3 (>60); EGFR Non-African American 50.6 (>60); Globulin 2.5 g/dL (2-4); Glucose 114 mg/dL (70-100); Magnesium 1.7 mg/dL (1.9-2.7); Potassium 3.6 mmol/L (3.5-5.0); Sodium 134 mmol/L (135-145); Total Protein 6.2 g/dL (6.4-8.9)
[2019-04-17 09:49] LABS: Troponin I 0.04 ng/mL (<0.04)
[2019-04-17 09:54] LABS: ABS Basophils 0.1 10^3/ul (0-0.2); ABS Lymphocytes 0.2 10^3/ul (1.0-4.8); ABS Monocytes 0.1 10^3/ul (0-0.8); ABS Neutrophils 11.4 10^3/ul (1.5-7.7); Eosinophil % 0.1 %; Nucleated Red Blood Cells % 0.1
[2019-04-17] MEDS ORDERED: Acetaminophen TAB* 325 MG PO ONE (09:56)
--- OUTSIDE RECORDS SUMMARY | 2019-04-17 10:22 | XMS REPORT | Continuity of Care Document ---
:1930 External Reference #:[id number] Author Name NNEKA Jaramillo Address [address] [place] [address] Care Team Providers Name Role Phone Hernán Harrell MD - Family Care Team Information Licensed Vocational Nurse [phone] Medicine Gurmeet Collazo MD - Dermatology Care Team Information Licensed Vocational Nurse [phone] Problems Active Problems Provider Date Benign essential hypertension Amador Barcenas M.D. Onset: 08/13/2006 Gastroesophageal reflux disease Amador Barcenas M.D. Onset: 08/13/2006 Hyperlipidemia Amador Barcenas M.D. Onset: 08/13/2006 Allergic rhinitis Trent Gonzalez M.D. Onset: 09/14/2013 Essential hypertension Hernán Harrell M.D. Onset: 06/13/2015 Edema Hernán Harrell M.D. Onset: 11/04/2017 Acute maxillary sinusitis Hernán Harrell M.D. Onset: 09/17/2016 History of malignant neoplasm of prostate Cherry Anton M.D. Onset: 2015 Social History Type Date Description Comments Sex Unknown Tobacco Use Start: Unknown Nonsmoker Tobacco Use Start: Unknown End: Unknown Patient is a former smoker Smoking Status Reviewed: 04/07/19 Patient is a former smoker Allergies, Adverse Reactions, Alerts Active Allergies Reaction Severity Comments Date Cipro Hives 07/14/2001 Medications Active Medications SIG Qnty Indications Ordering Date Provider Jury Duty Excuse unable to sit Hernán Zhu 01/30/2019 for periods of Sharita Harrell time due to medical issues should be excused from jury duty Hydrochlorothiazide take one 90caps I10 Suzy Orozco, 04/29/2017 12.5mg capsule by [employer] Capsules mouth every day Proctosol HC Apply Two 28.35units Hernán Marko 10/31/2016 2.5% Cream Times A Day as Sharita Harrell Directed Nasonex spray two 51gm Hernán Zhu 04/25/2015 50mcg/Act Suspension sprays in each Sharita Harrell nostril every day Quinapril HCL take one 90tabs I10 Hernán Zhu 04/10/2012 40mg Tablets tablet by Sharita Harrell mouth every day Omeprazole Take One 90caps K21.9 Hernán Zhu 10/26/[address] Capsule By Sharita Harrell Mouth Every Day Immunizations CPT Code Status Date Vaccine Lot # [id number] Given 04/25/2018 Influenza Vac, Quad[place] [id number] Given 03/08/2017 Influenza Vac, Quadrivalent, Slit Virus, Im [id number] 42824 Given 03/08/2017 Pneumococcal Conjugate Vacc-13 [id number] 46233 Given 04/02/2016 Influenza Vac, [place] [address] Given 04/11/2015 Influenza Vac, Quadrivalent, Slit Virus, Im [id number] Given 03/16/2013 Split Influenza Medicare: Fluzone [id number] 80741 Given 05/28/2012 Tdap Tetanus, W Pertussis [id number] 00430 Given 05/27/2012 High-Dose, Influenza Virus Vacccine-fluzone 65 and older 01680 Given 05/27/2012 High-Dose, Influenza Virus Vacccine-fluzone 65 and [id number] older 09521 Given 04/24/2011 DO Not Use Split Influenza Virus Vaccine 00804 Given 04/24/2011 Pneumococcal Immunization 32073 Given 09/21/2010 Pneumococcal Immunization [id number] 88289 Given 05/24/2008 DO Not Use Split Influenza Virus Vaccine [id number] 03785 Given 04/26/2007 DO Not Use Split Influenza Virus Vaccine [id number] 55588 Given 05/08/2006 DO Not Use Split Influenza Virus Vaccine [id number] 99612 Given 05/03/2005 DO Not Use Split Influenza Virus Vaccine 55470 Given 05/03/2005 DO Not Use Split Influenza Virus Vaccine 25100 Given 05/30/2004 DO Not Use Split Influenza Virus Vaccine 52234 Given 05/20/2001 Influenza Immunization 25515 Given 05/20/2001 DO Not Use Split Influenza Virus Vaccine Vital Signs Date Vital Result Comment 04/07/2019 1:09pm BP Systolic 128 mmHg BP Diastolic 74 mmHg Body Temperature 97.9 F Respiratory Rate 16 /min 04/06/2019 1:24pm BP Systolic 140 mmHg BP Diastolic 80 mmHg Heart Rate 88 /min Body Temperature 97.5 F Respiratory Rate 20 /min Weight 180.00 lb Results Test Date Facility Test Result H/L Range Note CBC Auto Diff 04/06/2019 [facility] [place] Blood Count 14.7 10^3/uL High 3.5- 10.8 Red Blood Count 5.12 10^6/uL Normal 4.18-5.48 Hemoglobin 15.1 g/dL Normal 14.0-18.0 Hematocrit 45 % Normal 42-52 Mean Corpuscular Volume 88 fL Normal 80-94 Mean Corpuscular Hemoglobin 29 pg Normal 27-31 Mean Corpuscular HGB Conc 33 g/dL Normal 31-36 Red Cell Distribution Width 15 % Normal 10-15 Platelet Count 253 10^3/uL Normal 150-450 Mean Platelet Volume 8.6 fL Normal 7.4-10.4 Abs Neutrophils 12.0 10^3/uL High 1.5-7.7 Abs Lymphocytes 1.9 10^3/uL Normal 1.0-4.8 Abs Monocytes 0.7 10^3/uL Normal 0-0.8 Abs Eosinophils 0.0 10^3/uL Normal 0-0.6 Abs Basophils 0.1 10^3/uL Normal 0-0.2 Abs Nucleated RBC 0.0 10^3/uL Granulocyte % 81.6 % Lymphocyte % 12.9 % Monocyte % 5.0 % Eosinophil % 0.1 % Basophil % 0.4 % Nucleated Red Blood Cells % 0.1 Comp Metabolic Panel 04/06/2019 [facility] [place] Sodium 138 mmol/L Normal 135-145 Potassium 4.4 mmol/L Normal 3.5-5.0 Chloride 102 mmol/L Normal 101-111 Co2 Carbon Dioxide 29 mmol/L Normal 22-32 Anion Gap 7 mmol/L Normal 2-11 Glucose 118 mg/dL High 70-100 Blood Urea Nitrogen 32 mg/dL High 6-24 Creatinine 1.98 mg/dL High 0.67-1.17 BUN/Creatinine Ratio 16.2 Normal 8-20 Calcium 9.6 mg/dL Normal 8.6-10.3 Total Protein 6.9 g/dL Normal 6.4-8.9 Albumin 4.3 g/dL Normal 3.2-5.2 Globulin 2.6 g/dL Normal 2-4 Albumin/Globulin Ratio 1.7 Normal 1-3 Total Bilirubin 1.00 mg/dL Normal 0.2-1.0 Alkaline Phosphatase 56 U/L Normal 34-104 Alt 18 U/L Normal 7-52 Ast 18 U/L Normal 13-39 Egfr Non- 32.0 >60 Egfr 38.7 >60 1 Laboratory test finding 04/06/2019 [facility] [place] Lipase 10 U/L Low 11.0-82.0 C Reactive Protein 23.55 mg/L High <8.01 Lactic Acid 1.4 mmol/L Normal 0.5-2.0 2 Urinalysis Profile 04/06/2019 [facility] [place] Urine Color Yellow Urine Appearance Clear Urine Specific [place] 1.018 Normal 1.010-1.030 Urine pH 5.0 Normal 5-9 Urine Urobilinogen Negative Negative Urine Ketones Trace Abnormal Negative Urine Protein Negative Negative Urine Leukocytes Negative Negative Urine Blood Negative Negative Urine Nitrite Negative Negative Urine Bilirubin Negative Negative Urine Glucose Negative Negative Ua - Non Micro (a) 04/06/2019 [facility] Appearance clear (607)- - Color yellow Glucose, Urine (a/[facility] [place]/CTX) negative Bilirubin negative Ketones negative SP Grav 1.020 Blood trace-intact PH 5.5 Protein negative Urobil 1.0 Nitrite negative Leukocytes (a/[facility] [place]/Centrex) negative Comprehensive Metabolic 11/05/2018 [facility]) Sodium 139 mEq/L 134-149 Prof Potassium 4.5 mEq/L 3.6-5.5 Chloride 99 mEq/L 94-112 Carbon Dioxide 29 mEq/L 21-32 Glucose 112 mg/dL High 70-105 3 BUN 28 mg/dL High 6-26 4 Creatinine 1.2 mg/dL 0.6-1.4 BUN/Creat Ratio 23.3 CALC 8.0-36.0 Calcium 9.4 mg/dL 8.6-10.2 Total Protein 6.9 g/dL 6.4-8.3 Albumin 4.5 g/dL 3.8-5.5 Globulin 2.4 g/dL 2.0-4.8 A/G Ratio 1.9 CALC 0.6-2.3 Alk. Phosphatase 54 U/L 22-95 Alt (SGPT) 24 U/L 7-35 Ast (Sgot) 30 U/L 5-34 Total Bilirubin 0.7 mg/dL 0.2-1.3 GFR Non- >60 ml/min/1.73m^ >=60 GFR >60 ml/min/1.73m^ >=60 Lipid Profile 11/05/2018 [facility] Les[facility]) Cholesterol 233 mg/dL High 120-200 Triglycerides 150 mg/dL 30-200 HDL Cholesterol 47 mg/dL 30-70 LDL (Calculated) 156 CALC High 0-129 VLDL Cholesterol 30 mg/dL 0-50 HDL Risk Factor 5.0 CALC High 0.0-4.4 CBC Electronic Fma 11/05/2018 [facility]) WBC 9.2 x10^3/UL 4.0- 10.0 RBC 5.01 x10^6/UL 3.93-6.00 HGB 14.3 g/dL 12.0-17.0 HCT 44 % 35-50 MCV 87.8 fL 80.0-95.0 MCH 28.5 pg 25.6-32.2 MCHC 32.5 g/dL 32.2-36.0 RDW-CV 14.4 % 11.6-14.4 PLT 272 x10^3/UL 163-400 MPV 10.7 fL 9.4-12.4 Angélica# 5.02 x10^3/UL 1.56-6.13 Lymph# 3.36 x10^3/UL 1.18-3.74 [place]# 0.63 x10^3/UL 0.24-0.82 Eos # 0.1 x10^3/UL 0.0-0.5 Baso # 0.07 x10^3/UL 0.01-0.08 Angélica% 54.5 % 34.0-70.0 Lymph % 36.5 % 20.0-52.0 [place]% 6.8 % 5.0-12.0 Eos% 1.2 % 0.7-7.0 Baso% 0.8 % 0.1-1.2 Laboratory test 11/05/2018 [facility] [place] Hemoglobin A1c (Fma) 5.7 % 4.1-5.7 finding (607)- - 1 Because ethnic data is not always readily available, this report includes an eGFR for both -Americans and non- Americans. The National Kidney Disease Education Program (NKDEP) does not endorse the use of the MDRD equation for patients that are not between the ages of 18 and 70, are , have extremes of body size, muscle mass, or nutritional status, or are non- or non-. According to the National Kidney Foundation, irrespective of diagnosis, the stage of the disease is based on the level of kidney function: Stage Description GFR(mL/min/1.73 m(2)) 1 Kidney damage with normal or decreased GFR 90 2 Kidney damage with mild decrease in GFR 60-89 3 Moderate decrease in GFR 30-59 4 Severe decrease in GFR 15-29 5 Kidney failure <15 (or dialysis) 2 [facility] Severe Sepsis and Septic Shock Management Bundle Measure requires all lactic acids initially measuring >2.0 mmol/L be repeated. 3 RESULTS VERIFIED BY REPEAT ANALYSIS 4 consistent w/ previous results Procedures Date Code Description Status 11/05/2013 41573491 Colonoscopy Completed Medical Devices Description No Information Available Encounters Type Date Location Provider Dx Diagnosis Office Visit 04/06/2019 Main Office Hernán Harrell, R10.31 Right lower quadrant 1:10p M.D. pain Office Visit 11/05/2018 Main Office Hernán Harrell, I10 Essential ( primary) 9:00a M.D. hypertension M54.5 Low back pain R73.01 Impaired fasting glucose Assessments Date Code Description Provider 04/07/2019 N20.1 Calculus of ureter NNEKA Jaramillo 04/06/2019 R10.31 Right lower quadrant pain Hernán Harrell M.D. 11/05/2018 I10 Essential (primary) hypertension Hernán Harrell M.D. 11/05/2018 M54.5 Low back pain Hernán Harrell M.D. 11/05/2018 R73.01 Impaired fasting glucose Hernán Harrell M.D. Plan of Treatment Future Appointment(s):05/11/2019 9:00 am - Hernán Harrell M.D. at Main [facility]5204/07/2019 - Consuelo Seay, PAN20.1 Calculus of ureterComments:Proceed with surgery with Dr. Brumfield.AllComments:PCMHMedication Management Patient Understands medications he's taking? Yes Are there Barriers to Adherence? No Has the patient been asked about herbal supplements and therapies, and OTC meds? Yes Care Plan1. Patient has been queried about patient's goals/preferences and functional/lifestyle goals at relevant visits. Yes If relevant, describe: N/A2. Treatment goals as explained to the patient: above3. Are there barriers to meeting treatment goals? No If Yes , please describe:4. Self-Management goals as described to the patient: Yes As always, we strongly encourage a healthy diet and making physical activity a part of your every day life. If you have questions about how or where to start, please contact the office. Functional Status Description No Information Available Mental Status Description No Information Available Referrals Description No Information Available
[2019-04-17 10:24] LABS: Acetaminophen < 15 mcg/mL; Alcohol < 10 mg/dL (<10)
[2019-04-17 10:29] LABS: Activated Partial Thrombo Time 31.7 seconds (26.0-38.0); Fibrinogen 363.4 mg/dL (110.8-404.3); INR 1.16 (0.82-1.09)
[2019-04-17 11:47] LABS: Erythrocyte Sed Rate 7 mm/Hr (0-19)
[2019-04-17] MEDS ORDERED: Magnesium Sulfate 2 GM IV* 2 GM/50 ML BAG IVPB ONE (12:33)
[2019-04-17 13:01] LABS: Influenza A Molecular NEGATIVE (Negative); Influenza B Molecular NEGATIVE (Negative)
[2019-04-17] MEDS: Heparin VIAL(*) 5000 UNITS/ML VIAL (FIVE THOUSAND) SUBCUT SCH ×2 (14:56→21:14)
[2019-04-17] MEDS: NS 0.9% 1000 ML** 1,000 ML IV SCH (14:57)
[2019-04-17] MEDS: Acetaminophen TAB* 325 MG PO PRN ×2 (15:44→21:13)
[2019-04-17 22:53] LABS: Troponin I 0.04 ng/mL (<0.04)
--- NOTE | 2019-04-17 23:12 | HP ---
CC: Dr. Harrell * HISTORY AND PHYSICAL: DATE OF ADMISSION: 04/17/19 PROVIDER: Shelby Patel NP PRIMARY CARE PROVIDER: Dr. Harrell. ATTENDING PHYSICIAN WHILE IN THE HOSPITAL: Dr. Lupe Pablo * (dictated by Shelby Patel NP). CHIEF COMPLAINT: Fever, altered mental status. HISTORY OF PRESENT ILLNESS: Mr. Weston is an 88-year-old male with a past medical history significant for hypertension and GERD who presented to the emergency room with fever and altered mental status. The patient recently had a kidney stone removed and he had a right renal stent placed. The patient reports that he had the renal stent removed yesterday with Dr. Brumfield. The patient reports that yesterday he was feeling a little bit confused, and last night, he developed a fever. He reports that his confusion was worse this morning, so he presented to emergency room for further evaluation. Upon arrival to the emergency room, the patient had a fever of 101.5. He had a heart rate of 103, respirations were 22 to 23 for which he met sepsis criteria with likely source of urine. The patient does report fever and chills. He denies any unintended weight loss, chest pain, or edema. He does report confusion. He denies any cough, hemoptysis, shortness of breath. No nausea, vomiting, diarrhea, or abdominal pain. He denies any CVA tenderness. He denies any hematuria or dysuria. He denies any pain with urination. He denies any focal weakness, sensory loss, visual complaints, dysphagia, arthralgias, myalgias, rashes, lesions, open sores, psychosis, or anxiety. While in the emergency room, the patient had routine lab work drawn. He was found to be febrile with recent renal stent removed and had mild leukocytosis with a white count of 11.8. Due to these findings, Hospital Medicine was asked to see and evaluate for admission. PAST MEDICAL HISTORY: Significant for: 1. Hypertension. 2. GERD. 3. Prostate cancer diagnosed in 1993, treated with cryotherapy. 4. History of arrhythmia. PAST SURGICAL HISTORY: Includes: 1. Renal stent placement. 2. Cryotherapy for prostate cancer. 3. Cholecystectomy. 4. Bilateral knee replacements. HOME MEDICATIONS: Include: 1. Omeprazole 20 mg p.o. daily. 2. Nasonex 2 sprays. 3. Hydrochlorothiazide 12.5 mg p.o. daily. 4. Quinapril 40 mg p.o. daily. ALLERGIES: CIPROFLOXACIN. FAMILY HISTORY: No reported history of coronary artery disease, diabetes, or cancer. SOCIAL HISTORY: The patient quit smoking many years ago prior to having children. He denies any alcohol or illicit drug use. He is . Surrogate decision maker in the event he is unable to make his own decisions is , Selin. He is a DNR/DNI. REVIEW OF SYSTEMS: A 14-point review of systems was completed and all pertinent positives are as mentioned in the HPI. PHYSICAL EXAMINATION GENERAL: At this time, Mr. Weston is an 88-year-old male with past medical history significant for history of prostate cancer, hypertension, history of arrhythmias, and GERD who presented to the emergency room with complaints of altered mental status and fever. He is resting comfortably on the stretcher in the emergency room. He is in no acute distress. He is mildly confused to time. He is oriented to place and situation. VITAL SIGNS: Temperature of 101.6, heart rate is 88, respirations are 17, O2 saturation 95%, blood pressure is 108/59. HEENT: Head is atraumatic, normocephalic. Eyes: EOMs are intact. Sclerae anicteric and not pale. Oral mucosa appeared to be moist. NECK: Supple. LUNGS: Clear to auscultation bilaterally. No wheezes, rales, or rhonchi. CARDIAC: S1, S2. Regular rate and rhythm. No murmurs, rubs, or gallops. ABDOMEN: Soft and nontender. Bowel sounds are present x4. EXTREMITIES: He is able to move all 4 extremities. There is no clubbing or cyanosis. NEUROLOGIC: He is awake, alert. He is oriented to place and situation. He is confused to time. He has no gross focal deficits. SKIN: Intact. LABORATORY DATA AND DIAGNOSTIC STUDIES: WBCs are 11.8, RBCs 4.76, hemoglobin 13.5, hematocrit is 42, platelet count is 226. INR 1.16, aPTT was 31.7. Sodium 134, potassium 3.6, chloride 99, carbon dioxide is 28, anion gap was 7, BUN was 20, creatinine 1.33, glucose was 114, lactic acid 1.6, calcium 8.8, magnesium 1.7. Total bilirubin 0.70, ASTs were 19, ALTs were 16, alkaline phosphatase was 49. Ammonia was 32. CK 65 troponin was 0.04. C-reactive protein was 44.46. BNP was 414. Urine was within normal limits with exception of blood of 2+ and urine wbc's were 2+. Toxicology, acetaminophen, and serum alcohol were negative. Influenza A and B were negative. The patient had an electrocardiogram which showed sinus rhythm at a rate of 105. Does have some minor ST depression of lead III. He had a CT of the brain, radiologist's impression: No acute intracranial abnormality by CT, a calcified probable 1.1 cm meningioma is see along the left parasagittal falx cerebri, mild chronic small vessel ischemic disease. He had a chest x-ray, radiologist's impression: No active cardiopulmonary process is evident. ASSESSMENT AND PLAN: Mr. Weston is an 88-year-old male with a past medical history significant for prostate cancer, hypertension, gastroesophageal reflux disease, and history of cardiac arrhythmia who presented to the emergency room with complaints of fever and altered mental status. He will be admitted under observation for: 1. Fever. The patient did meet sepsis criteria on admission with tachycardia and a fever of 101.5 and tachypnea with suspected source of urine, mild leukocytosis. He was given IV fluids in the emergency room. I will continue him on normal saline at 100 cc/hour. He will continue on ceftriaxone 1 g IV daily. He did receive 1 g of ceftriaxone in the emergency room. Blood cultures are currently pending. 2. Hypertension. I will hold his hydrochlorothiazide and quinapril in the setting of sepsis and underlying urinary tract infection. 3. Gastroesophageal reflux disease. He should continue on omeprazole 20 mg p.o. daily. 4. FEN. He can have a regular diet. 5. Code status. He is a DNR/DNI. 6. Elevated troponin. The patient does have mildly elevated troponin. I suspect this is related to demand ischemia from his underlying sepsis and infection. I will repeat troponin x1. The patient is without any significant EKG changes and has no chest pain at this time. We will continue to monitor him on telemetry. 7. DVT prophylaxis. I will place him on heparin subcu. TIME SPENT: Time spent on this admission was 60 minutes, greater than half that time was spent at the bedside reviewing events leading thus far to his hospitalization, performing physical exam, and reviewing my plan of care. I discussed this with my attending, Dr. Lupe Pablo; she is in agreement with my plan. SHELBY PATEL, CARMEN [id number]/[facility] #: [id number] KELECHI
[2019-04-18] MEDS: Acetaminophen TAB* 325 MG PO PRN ×2 (03:06→14:03)
[2019-04-18] MEDS: NS 0.9% 1000 ML** 1,000 ML IV SCH ×2 (03:07→14:03)
[2019-04-18] MEDS: Heparin VIAL(*) 5000 UNITS/ML VIAL (FIVE THOUSAND) SUBCUT SCH ×3 (05:59→21:16)
[2019-04-18] MEDS: Pantoprazole TAB * 40 MG TAB PO SCH (08:33)
[2019-04-18 08:37] LABS: ABS Lymphocytes 0.5 10^3/ul (1.0-4.8); ABS Monocytes 0.1 10^3/ul (0-0.8); ABS Neutrophils 4.8 10^3/ul (1.5-7.7); Hematocrit 39 % (42-52); Hemoglobin 12.9 g/dL (14.0-18.0); Lymphocyte % 9.1 %; Mean Corpuscular HGB Conc 33 g/dL (31-36); Mean Corpuscular Hemoglobin 29 pg (27-31); Mean Corpuscular Volume 87 fL (80-94); Mean Platelet Volume 7.9 fL (7.4-10.4); Platelet Count 179 10^3/uL (150-450); Red Blood Count 4.48 10^6 /uL (4.18-5.48); Red Cell Distribution Width 15 % (10-15); White Blood Count 5.5 10^3/uL (3.5-10.8)
[2019-04-18 08:54] LABS: BUN/Creatinine Ratio 16.2 (8-20); Calcium 7.6 mg/dL (8.6-10.3); EGFR African American 75.5 (>60); EGFR Non-African American 62.4 (>60); Potassium 3.6 mmol/L (3.5-5.0)
[2019-04-18] MEDS ORDERED: cefTRIAXone(*) 1 GM in NS 0.9% 50 ML* 50 ML IVPB SCH (09:00)
[2019-04-18] MEDS ORDERED: Loperamide CAP* 2 MG PO PRN (14:08)
[2019-04-18] MEDS ORDERED: Ibuprofen TAB* 400 MG PO PRN (14:39)
[2019-04-18] MEDS ORDERED: Vancomycin(*) 1,250 MG in NS 0.9% 250 ML* 250 ML IVPB ONE (15:00)
[2019-04-18] MEDS ORDERED: Vancomycin per Pharmacy* NOTE FOLLOW UP SCH (15:00)
--- NOTE | 2019-04-18 15:23 | PN ---
Subjective Date of Service: 04/18/19 Interval History: Patient is feeling poorly this AM. Patient has intermittent subjective chills. These persisted throughout the day and feels similarly to before patient came in. Patient does not have good energy. Patient has had several moderate size loose BMs which has been going on since before he had his stent removal. Patient has no other recent antibiotics. Patient has a sore throat. Family History: Unchanged from Admission Social History: Unchanged from Admission Past Medical History: Unchanged from Admission Objective Active Medications: Acetaminophen (Tylenol Tab*) 650 mg PO Q4H PRN PRN Reason: MILD PAIN or TEMP > 100.4 Last Admin: 04/18/19 14:03 Dose: 650 mg Heparin Sodium (Porcine) (Heparin Vial(*)) 5,000 units SUBCUT Q8HR [facility] Last Admin: 04/18/19 14:04 Dose: 5,000 units Sodium Chloride (Ns 0.9% 1000 Ml) 1,000 mls @ 100 mls/hr IV PER RATE [facility] Last Admin: 04/18/19 14:03 Dose: 100 mls/hr Cefepime HCl (Maxipime 2 Gm In Dextrose Duplex (*)) 2 gm in 50 mls @ 100 mls/ hr IV Q12H [facility] Vancomycin HCl 1,250 mg/ (Sodium Chloride) 250 mls @ 166.667 mls/hr IVPB ONCE ONE; Protocol Stop: 04/18/19 16:29 Ibuprofen (Motrin Tab*) 400 mg PO Q6H PRN PRN Reason: PAIN-MODERATE/TEMP >/= 100.4 Lactobacillus Rhamnosus (Lactobacillus Acidophilus*) 1 tab PO DAILY [facility] Pantoprazole Sodium (Protonix Tab*) 40 mg PO QAM [facility] Last Admin: 04/18/19 08:33 Dose: 40 mg Pharmacy Consult (Vancomycin Per Pharmacy*) 1 note FOLLOW UP .VANC PER PHARMACY [facility]; Protocol Vital Signs - 8 hr 04/18/19 04/18/19 04/18/19 07:25 08:00 11:58 Temperature 98.8 F 98.0 F Pulse Rate 92 96 Respiratory 20 20 Rate Blood Pressure 129/55 137/67 (mmHg) O2 Sat by Pulse 96 96 96 Oximetry Oxygen Devices in Use Now: None Appearance: Patient is an 88yo male who appears stated age and is sitting in the bed in NAD. Eyes: No Scleral Icterus, PERRLA Ears/Nose/Mouth/Throat: NL Teeth, Lips, Gums, Clear Oropharnyx, - - Dry and irritated oropharynx. Neck: NL Appearance and Movements; NL JVP, Trachea Midline Respiratory: Symmetrical Chest Expansion and Respiratory Effort, Clear to Auscultation Cardiovascular: NL Sounds; No Murmurs; No JVD, No Edema, - - Tachycardia. Abdominal: NL Sounds; No Tenderness; No Distention, No Hepatosplenomegaly, - - No Suprapubic or CVA tenderness. Lymphatic: No Cervical Adenopathy Extremities: No Edema, No Clubbing, Cyanosis Skin: No Rash or Ulcers, No Nodules or Sclerosis Neurological: Alert and Oriented x 3, NL Sensation, NL Muscle Strength and Tone , - - CN II-XII intact. Result Diagrams: 04/18/19 08:14 04/18/19 08:14 Microbiology and Other Data: Microbiology 04/17/19 09:09 Aerobic Blood Culture - Preliminary Blood Venous No Growth Day 1 Anaerobic Blood Culture - Preliminary No Growth Day 1 04/17/19 09:05 Aerobic Blood Culture - Preliminary Blood Venous No Growth Day 1 Anaerobic Blood Culture - Preliminary No Growth Day 1 04/17/19 09:09 Urine Culture - Final Urine No Growth (<1,000 CFU/mL) Assess/Plan/Problems-Billing Assessment: Patient is an 88yo male with a PMH for Prostate Cancer, Nephrolithiasis with renal stenting, here with high fevers after renal stent changing. - Patient Problems (1) Sepsis Current Visit: Yes Status: Acute Comment: - With high fevers, leukocytosis, fevers. - No lactic acidosis, Initial hypotension responded to fluid bolus. - Received fluid bolus, Started on Ceftriaxone. - Persistent rigors and subjective fevers through day - Urine and Blood Cultures negative - Broaden to Cefepime/Vanco. - CT abdomen pelvis due to diarrhea, does not meet clinical criteria for C. Diff testing. - CXR negative, no rash, no other obvious cause. - Throat irritation not likely infective - Flu Negative. (2) Nephrolithiasis Current Visit: Yes Status: Acute Code(s): N20.0 - CALCULUS OF KIDNEY SNOMED Code(s): 54237021 Comment: - S/P Renal stent changing on day before admission - Urine culture negative - Got prophylactic antibiotic at the time per family. (3) Prostate cancer Current Visit: Yes Status: Acute Code(s): C61 - MALIGNANT NEOPLASM OF PROSTATE SNOMED Code(s): 353416671 Comment: - S/P cryotherapy - No signs of urinary obstruction. (4) GERD (gastroesophageal reflux disease) Current Visit: Yes Status: Acute Code(s): K21.9 - GASTRO-ESOPHAGEAL REFLUX DISEASE WITHOUT ESOPHAGITIS SNOMED Code(s): 882109051 Comment: - Continue Pantoprazole (5) HTN (hypertension) Current Visit: Yes Status: Acute Code(s): I10 - ESSENTIAL (PRIMARY) HYPERTENSION SNOMED Code(s): 15689109 Comment: - Hold HCTZ and Quinapril - Normotensive (6) DVT prophylaxis Current Visit: Yes Status: Acute Code(s): Z29.9 - ENCOUNTER FOR PROPHYLACTIC MEASURES, UNSPECIFIED SNOMED Code(s): 850714935 Comment: - Heparin SubQ (7) DNR (do not resuscitate) Current Visit: Yes Status: Acute Status and Disposition: Inpatient for workup of Sepsis.
[2019-04-18] MEDS: Cefepime 2 GM in Dextrose(*) 2 GM/50 ML BAG IV SCH (15:34)
[2019-04-18] MEDS ORDERED: Iohexol 300* (CONTRAST) 10 ML SDV IV ONE (17:29)
[2019-04-19] MEDS: Cefepime 2 GM in Dextrose(*) 2 GM/50 ML BAG IV SCH ×2 (02:00→15:27)
[2019-04-19] MEDS: Heparin VIAL(*) 5000 UNITS/ML VIAL (FIVE THOUSAND) SUBCUT SCH ×2 (05:47→13:07)
[2019-04-19] MEDS: NS 0.9% 1000 ML** 1,000 ML IV SCH (05:48)
[2019-04-19 05:50] LABS: ABS Lymphocytes 0.9 10^3/ul (1.0-4.8); ABS Monocytes 0.3 10^3/ul (0-0.8); ABS Neutrophils 3.9 10^3/ul (1.5-7.7); Eosinophil % 0.1 %; Hematocrit 38 % (42-52); Hemoglobin 12.8 g/dL (14.0-18.0); Lymphocyte % 17.1 %; Mean Corpuscular HGB Conc 34 g/dL (31-36); Mean Corpuscular Hemoglobin 29 pg (27-31); Mean Corpuscular Volume 86 fL (80-94); Nucleated Red Blood Cells % 0.2; Platelet Count 150 10^3/uL (150-450); Red Blood Count 4.36 10^6 /uL (4.18-5.48); Red Cell Distribution Width 16 % (10-15)
[2019-04-19 05:58] LABS: BUN/Creatinine Ratio 15.7 (8-20); C Reactive Protein 109.01 mg/L (<8.01); Calcium 7.7 mg/dL (8.6-10.3); EGFR African American 77.9 (>60); EGFR Non-African American 64.4 (>60); Potassium 3.7 mmol/L (3.5-5.0)
[2019-04-19] MEDS ORDERED: Vancomycin(*) 1,000 MG in NS 0.9% 250 ML* 250 ML IVPB SCH (06:00)
[2019-04-19] MEDS: Pantoprazole TAB * 40 MG TAB PO SCH (08:13)
[2019-04-19] MEDS ORDERED: Lactobacillus Acidophilus* 1 TAB PO SCH (09:00)
[2019-04-19 12:10] VITALS: BP 134/65
[2019-04-19 13:49] LABS: Rapid Strep Molecular Negative (Negative)
--- NOTE | 2019-04-19 23:16 | DS ---
CC: Dr. Harrell * DISCHARGE SUMMARY: DATE OF ADMISSION: 04/17/19. DATE OF DISCHARGE: 04/19/19. ATTENDING PHYSICIAN WHILE IN THE HOSPITAL: Dr. Moe Mahoney * (dictated by NNEKA Johnson). PRIMARY CARE PROVIDER: Dr. Harrell. PRIMARY DIAGNOSIS: Fever of unclear origin with signs of sepsis with no confirmed source of infection. SECONDARY DIAGNOSES: 1. Hypertension. 2. Gastroesophageal reflux disease. 3. Recent history of kidney stone, status post right renal stent placement which has subsequently been removed. PERTINENT LABORATORY DATA: Urine culture negative. Blood culture no growth to date. HISTORY OF PRESENT ILLNESS/HOSPITAL COURSE: Mr. Weston is an 88-year-old white male with a past medical history of hypertension, GERD, and recent renal stent removal who presented to the emergency department on 04/17/19 due to fever and altered mental status. The patient had right renal stent removed on 04/16/19 and received antibiotics during this procedure. Please see further details in the admitting history and physical written by Shelby Patel NP. The patient had ongoing 2 episodes per day of diarrhea during his hospital stay and also on the day prior to admission. This is likely an adverse effect of antibiotics he received during the procedure as well as during his hospital stay. He did not have continued leukocytosis and he had non-bloody diarrhea. Additionally, his abdomen and pelvis CT had no infectious findings. The patient presented with fever and leukocytosis and was treated empirically for concern for UTI; however, his urine had negative culture. Considering the risk of infection in the recent renal stent removal and that he did receive IV antibiotics during that time, it is possible that this did inhibit growth of any organism that may have been causing this. The patient did improve with IV antibiotics and empiric antibiotics. The patient's altered mental status resolved and he was afebrile for over 24 hours on day of discharge. The patient did complain of a sore throat as well as nasal congestion. On day of discharge, a rapid strep was collected from his throat and was negative. I discussed with the patient the sore throat is likely viral cause. Additionally , the patient had an elevated troponin at admission; however, he had no EKG changes or anginal symptoms. This is likely ischemic demand in the setting of likely sepsis. The patient is additionally influenza A and B negative. On the date of discharge, the patient is feeling well. He does report 2 episodes of diarrhea which are non- bloody, but has no abdominal pain or discomfort. Denies nausea, vomiting, chest pain, difficulty breathing, dysuria, hematuria, symptomatic fever or chills. PHYSICAL EXAM ON DAY OF DISCHARGE: General: Elderly white male who appears younger than stated age, lying upright in the hospital bed, appearing comfortable, in no acute distress. Eyes: PERRL. Sclerae anicteric. ENT: Erythema and exudate to the oropharynx, especially in the left anterior pillar. No evident postnasal drip, tonsils are absent. Neck: Anterior cervical lymphadenopathy. Lungs: Clear to auscultation throughout. Cardio: Regular rate and rhythm without murmurs, rubs, or gallops. Abdomen: Soft, nontender, and nondistended. No suprapubic tenderness. Extremities: No clubbing, cyanosis, or edema. Neuro: The patient is alert and oriented x3. No focal deficits. Able to move all extremities. No tremors. DISCHARGE PLAN: Diet: The patient may return to regular and unrestricted diet. Activity: The patient may return to normal activity as tolerated. The patient is advised to follow up with Dr. Brumfield as directed. The patient is advised to follow up with primary care provider within 1 week. At the time of followup, it should be evaluated whether his sore throat is continuing. I believe that likely his sore throat is a viral URI, especially considering it is in conjunction with nasal congestion and his strep test was negative. However, if this is continuing for beyond 1 week, further testing should be considered. The patient is advised to continue his course of cefdinir until completion. He will be receiving a total of 5 days of antibiotics in combination with antibiotics he received inpatient. The patient is advised to return to the emergency department if he is experiencing any dysuria, hematuria, flank pain, abdominal pain, low back pain, fever, or chills. Additionally, if the patient' s diarrhea is not resolved at the time of followup with his primary care provider, then other cause should be investigated. I did believe this is likely not infectious and I did believe it was caused by antibiotics he was taking. By the time of followup with his primary care provider, his antibiotics will be completed. I discussed with the patient that likely his diarrhea will resolve. He may continue to take probiotics should he wish to. DISCHARGE MEDICATIONS: Cefdinir 300 mg p.o. b.i.d. x2 days, to be completed on 04/21/19. Continued home medications: 1. Ibuprofen 400 mg p.o. q.6 hours p.r.n. pain. 2. Omeprazole 20 mg p.o. daily. 3. Mometasone nasal spray 2 sprays both nares q.a.m. 4. Hydrochlorothiazide 12.5 mg p.o. daily. 5. Acetaminophen with codeine 1 tab p.o. q.8 hours p.r.n. severe pain. 6. Quinapril 40 mg p.o. daily. CONDITION ON DISCHARGE: Stable. DISPOSITION: Home. TIME SPENT: Approximately 45 minutes were spent on this discharge, approximately half of this time was spent at bedside evaluating the patient and discussing the plan of care. NNEKA JOHNSON [id number]/[facility] #: [id number]
[2019-04-20] MEDS ORDERED: Vancomycin Trough Check NOTE FOLLOW UP ONE (05:30)
== END 2019-04-19 15:20 | disposition home or self-care (01) ==
LOC: ED 08:18 → MED 12:17
PROVIDERS: ADMIT Internal Medicine; ATTEND Internal Medicine
DX: R50.9 Fever, unspecified (principal); I10 Essential (primary) hypertension; K21.9 Gastro-esophageal reflux disease without esophagitis; Z87.442 Personal history of urinary calculi; Z79.899 Other long term (current) drug therapy; R41.82 Altered mental status, unspecified; Z85.46 Personal history of malignant neoplasm of prostate; I49.9 Cardiac arrhythmia, unspecified; Z66 Do not resuscitate
CPT/HCPCS: 36415; 70450; 71045; 74177; 80048; 80053; 80320; 80329; 81003; 81015; 82140; 82550; 83605; 83735; 83880; 84484; 85025; 85384; 85610; 85652; 85730; 86140; 87040; 87086; 87651; 93005; 96361; 96365; 96366; 96367; 96372; 99283; A9270-GY; G0378; G0480; J0692; J0696; J1644; J3370; J3475; Q9967